=== PATIENT | male | born 1980 | race Caucasian/White ===

== ENCOUNTER 2017-12-10 09:56 | Emergency (ER) | payer SELFPAY ==
[2017-12-10 11:39] LABS: APPEARANCE CLEAR (CLEAR); BACTERIA FEW /hpf (NONE SEEN); BILIRUBIN NEGATIVE (NEGATIVE); COLOR DK YELLOW (YELLOW); EPITHELIAL CELLS RARE /hpf (0-5); GLUCOSE NEGATIVE (NEGATIVE); KETONE NEGATIVE (NEGATIVE); NITRITE NEGATIVE (NEGATIVE); PROTEIN NEGATIVE (NEGATIVE); RED CELLS - URINE OCC /hpf (0-5); SPECIFIC GRAVITY 1.015 (1.005-1.020); UROBILINOGEN NORMAL (NORMAL); WHITE CELLS - URINE RARE /hpf (0-5)
== END 2017-12-10 12:05 | disposition home or self-care (01) ==
LOC: D.ER 09:56
PROVIDERS: Family Medicine
DX: M54.5 Low back pain (principal); M51.36 Other intervertebral disc degeneration, lumbar region

== ENCOUNTER 2017-12-20 17:31 | Emergency (ER) | payer MEDICAID | END 2017-12-20 23:27 | disposition home or self-care (01) | LOC: D.ER 17:31 | DX: M62.838 Other muscle spasm (principal); M54.5 Low back pain ==

== ENCOUNTER 2018-01-07 14:18 | Emergency (ER) | payer MEDICAID ==
[2018-01-07 15:14] LABS: BASOPHILS 0.2 % (0-2); EOSINOPHILS 0.8 % (0-7); HEMOGLOBIN 14.6 g/dL (13.5-17.5); IMMATURE GRANULOCYTES 0.4 % (0-5); MCH 32.3 pg (26.0-34.0); MCHC 34.8 g/dL (31.0-37.0); MCV 92.9 fL (80.0-100.0); MEAN PLATELET VOLUME 8.1 fL (7.4-10.4); NEUTROPHILS 66.6 % (40-80); PLATELET COUNT 386 10x3/uL (130-400); RBC 4.52 10x6/uL (4.20-6.10); RDW 13.3 % (11.5-14.5); WBC 13.1 10x3/uL (4.8-10.8)
[2018-01-07 15:28] LABS: ALBUMIN 4.1 g/dL (3.4-5.0); ALKALINE PHOSPHATASE 78 U/L (46-116); ALT (SGPT) 26 U/L (10-68); AMYLASE - SERUM 42 U/L (25-115); BILIRUBIN - TOTAL 0.27 mg/dL (0.2-1.3); CALC OSMOLALITY 280 mosm/kg (275-300); CHLORIDE - SERUM 104 mmol/L (98-107); GLUCOSE 94 mg/dL (74-106); LIPASE 161 U/L (73-393); POTASSIUM - SERUM 4.1 mmol/L (3.5-5.1); PROTEIN - SERUM 8.3 g/dL (6.4-8.2); SODIUM 141 mmol/L (136-145); UREA NITROGEN 13 mg/dL (7-18); eGFR NON AFRICAN AMERICAN 89 mL/min (90-120)
[2018-01-07 15:54] LABS: APPEARANCE CLEAR (CLEAR); BILIRUBIN NEGATIVE (NEGATIVE); COLOR YELLOW (YELLOW); GLUCOSE NEGATIVE (NEGATIVE); KETONE NEGATIVE (NEGATIVE); NITRITE NEGATIVE (NEGATIVE); PROTEIN NEGATIVE (NEGATIVE); UROBILINOGEN NORMAL (NORMAL)
== END 2018-01-07 19:14 | disposition home or self-care (01) ==
LOC: D.ER 14:18
PROVIDERS: Family Medicine
DX: R10.13 Epigastric pain (principal); F17.200 Nicotine dependence, unspecified, uncomplicated

== ENCOUNTER 2018-02-02 13:30 | Emergency (ER) | payer MEDICAID | END 2018-02-02 15:26 | disposition home or self-care (01) | LOC: D.ER 13:30 | DX: M54.5 Low back pain (principal); F17.200 Nicotine dependence, unspecified, uncomplicated ==